=== PATIENT | female | born 1955 | race Caucasian/White ===

== ENCOUNTER 2017-09-25 00:59 | Emergency (ER) | payer OTHER ==
[~2017-09-25] VITALS: Ht 162.6 cm; Wt 75.3 kg
[~2017-09-25 00:59] MED LIST: ADVIL,NUPRIN,M200 MG PO; AMANTADINE100 M1 PO; B-121000 MC2 PO; BACLOFEN20 MG PO; BACTRIM,SEPT1 TABLET PO; CEFTIN500 MG PO; CRESTOR PO; CRESTOR20 MG PO; CYMBALTA30 MG PO; CYMBALTA60 MG PO; DITROPAN5 MG PO; GARLIC500 MG PO; GILENYA0.5 MG; GILENYA0.5 MG PO; IBUPROFEN400 MG PO; KEPPRA500 MG PO; METHYLPHENIDATE20 M1 PO; NICOTINE PATCH1 EAC1 TD; OXYBUTYNIN CHLOR5 MG PO; RITALIN SR, MET20 MG PO; VICODIN 5-3001 EACH PO; [UNRECOGNIZED DRUG - REMARK]
[2017-09-25 05:12] VITALS: BP 127/57
== END 2017-09-25 05:13 ==
LOC: EME 00:59
PROC: 0HDRXZZ Extraction of Toe Nail, External Approach (ICD-10-PCS; principal; 2017-09-25)
DX: S91.202A Unspecified open wound of left great toe with damage to nail, initial encounter (principal); W18.30XA Fall on same level, unspecified, initial encounter; Y92.129 Unspecified place in nursing home as the place of occurrence of the external cause; F03.90 Unspecified dementia, unspecified severity, without behavioral disturbance, psychotic disturbance, mood disturbance, and anxiety; G35 Multiple sclerosis; F17.200 Nicotine dependence, unspecified, uncomplicated; H54.7 Unspecified visual loss; Z88.5 Allergy status to narcotic agent
CPT/HCPCS: 73610; 99281; 99285